=== PATIENT | female | born 1990 | race Caucasian/White ===

== ENCOUNTER → 2019-12-18 12:46 | Outpatient (CLI) | payer SELFPAY ==
--- NOTE | ~2019-12-18 | US_ITS ---
EXAMINATION: US breast LT limited HISTORY: Palpable lump of the upper inner quadrant of the left breast TECHNIQUE: Limited left breast ultrasound is performed. FINDINGS: There is a 4 mm cyst at the 9:00 location 4 cm from the nipple. No suspicious cystic or willam id mass is identified. IMPRESSION: No suspicious cystic or solid mass identified. BI-RADS Category 2: Benign finding(s). Reviewed, dictated and finalized at location A.
== END ==
PROVIDERS: Visit Provider Obstetrics & Gynecology
DX: N64.59 Other signs and symptoms in breast (principal)
CPT/HCPCS: 76642